=== PATIENT | male | born 1955 | race Caucasian/White ===

== ENCOUNTER 2018-04-08 07:13 | Day surgery (SDC) | payer MEDICARE ==
[2018-04-08] MEDS ORDERED: PROPOFOL 200 MG/20 ML VIAL As Ordered ×2 (07:47)
[2018-04-08] MEDS ORDERED: LIDOCAINE 2% INJ 100 MG/5 ML SDV (FOR ANES.) As Ordered (07:48)
[2018-04-08] MEDS ORDERED: NS 1,000 ML IV (08:00)
== END 2018-04-08 09:55 | disposition home or self-care (01) ==
LOC: M OPP 07:13
DX: Z12.11 Encounter for screening for malignant neoplasm of colon (principal); Z86.010 Personal history of colon polyps; D12.2 Benign neoplasm of ascending colon; K62.1 Rectal polyp; K64.8 Other hemorrhoids; I10 Essential (primary) hypertension; E78.5 Hyperlipidemia, unspecified; F41.9 Anxiety disorder, unspecified; R06.83 Snoring; Z79.899 Other long term (current) drug therapy
CPT/HCPCS: 45380

== ENCOUNTER 2019-03-14 19:18 | Inpatient (IN) | payer MEDICARE ==
[~2019-03-14] VITALS: Ht 170.2 cm; Wt 87.9 kg
[~2019-03-14 19:18] MED LIST: ATOR1TAB21 PO; FLUO20CA19 PO; LISI10TA4 PO
[2019-03-14 19:55] LABS: HEMATOCRIT 44.2 % (42.0-52.0); HEMOGLOBIN 14.8 g/dl (13.5-17.5); MEAN CORPUSCULAR HGB CONC 33.5 g/dl (32.0-36.5); MEAN CORPUSCULAR VOLUME 89.7 fl (80.0-96.0); PLATELET COUNT, AUTOMATED 283 10^3/uL (150-450); RED BLOOD COUNT 4.93 10^6/uL (4.30-6.10); WHITE BLOOD COUNT 11.9 10^3/uL (4.0-10.0)
[2019-03-14 20:23] LABS: AMPHETAMINES LEVEL URINE NEGATIVE (NEGATIVE); BARBITURATES URINE NEGATIVE (NEGATIVE); BENZODIAZEPINES URINE NEGATIVE (NEGATIVE); CANNABINOIDS URINE NEGATIVE (NEGATIVE); COCAINE METABOLITE URINE NEGATIVE (NEGATIVE); METHADONE URINE NEGATIVE (NEGATIVE); OPIATES URINE NEGATIVE (NEGATIVE); PHENCYCLIDINE URINE NEGATIVE (NEGATIVE)
[2019-03-14 20:52] LABS: ACETAMINOPHEN LEVEL < 2.0 UG/ML (10.0-30.0); ALBUMIN 4.6 GM/DL (3.2-5.2); ALT/SGPT 36 U/L (12-78); BILIRUBIN,DIRECT 0.2 MG/DL (0.0-0.2); BILIRUBIN,TOTAL 0.6 MG/DL (0.2-1.0); BLOOD UREA NITROGEN 9 MG/DL (7-18); CALCIUM LEVEL 9.2 MG/DL (8.8-10.2); CARBON DIOXIDE LEVEL 26 MEQ/L (21-32); CHLORIDE LEVEL 95 MEQ/L (98-107); CREATININE FOR GFR 0.85 MG/DL (0.70-1.30); ETHYL ALCOHOL (ETHANOL) < 0.003 % (0.000-0.010); GLOMERULAR FILTRATION RATE > 60.0 (>49); GLUCOSE, FASTING 101 MG/DL (70-100); POTASSIUM SERUM 4.1 MEQ/L (3.5-5.1); SALICYLATE LEVEL < 1.7 MG/DL (5.0-30.0); SODIUM LEVEL 133 MEQ/L (136-145); TOTAL PROTEIN 7.7 GM/DL (6.4-8.2)
[2019-03-14] MEDS ORDERED: MOM 30ML SUSPENSION UDC PO PRN (21:30)
[2019-03-14] MEDS ORDERED: ACETAMINOPHEN TAB 650MG DOSE (2X325MG) PO PRN (21:30)
[2019-03-14] MEDS ORDERED: MAALOX 30 ML SUSP *UDC PO PRN (21:30)
[2019-03-14 23:01] VITALS: BP 169/93
[2019-03-15 07:00] VITALS: BP 139/89
[2019-03-15] MEDS: ATORVASTATIN 20 MG TAB PO SCH (07:58)
[2019-03-15] MEDS ORDERED: LISINOPRIL 20 MG TAB PO SCH (09:00)
[2019-03-15] MEDS ORDERED: FLUoxetine 20 MG CAP PO SCH (09:00)
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
--- NOTE | 2019-03-15 13:27 | HPEPDOC ---
General Date of Admission Mar 14, 2019 at 21:17 Date of Service: Mar 15, 2019 Chief Complaint The patient is a 63-year-old male who presented to the emergency room after experiencing difficulty with anger History of Present Illness Patient is a 63-year-old male with a past medical history of hypertension, dyslipidemia, depression/anxiety, who presented to the emergency room after experiencing difficulty with controlling his anger. Currently, this is being managed by psychiatry. Hospitalist service was consulted for medical screening evaluation. Currently, patient does not experience any headache, nausea, vomiting, chest pain, shortness of breath, cough, abdominal pain, constipation, diarrhea, discomfort with urination or any fevers/chills over the last 2 weeks. Patient does report a poor appetite and has reported a weight loss of approximately 7 pounds over 1 month. Home Medications Scheduled Atorvastatin Calcium (Atorvastatin Calcium) 20 Mg Tab, 20 MG PO DAILY, (Reported) Fluoxetine Hcl (Fluoxetine HCl) 20 Mg Cap, 20 MG PO DAILY, (Reported) Lisinopril (Lisinopril) 10 Mg Tab, 10 MG PO DAILY, (Reported) Allergies Coded Allergies: No Known Allergies (Unverified , 03/25/18) Past Medical History Medical History Hypertension, dyslipidemia, depression/anxiety Surgical History Left shoulder repair for torn rotator cuff Left knee arthroplasty Hernia repair in childhood Family History - Mother with history of diabetes, hypertension and possible heart attack - Father with history of Alzheimers Social History - Patient has quit smoking 12 years ago but was a smoker of 40 years at 3 PPD use; Social alcohol use; Marijuana use, last reported 1 week prior - Denies recent travel or sick contacts - Lives with Review of Systems Other systems 10 point review of systems complete, all negative otherwise stated in HPI Vital Signs - Vitals: BP 139/89, HR 78, RR 16, Sat 98.2F, Temp 98.2F - General: Lying in bed, No acute distress, Speaking in full sentences, AAOx3 - HEENT: NC, AT, PERRLA, EOMI - CVS: RRR, +S1S2 - Lungs: Fair air entry bilaterally, No appreciable wheezing / rales / rhonchi - Abdomen: Soft, Non-distended, Non-tender - Extremities: No lower extremity edema, No calf tenderness - Neuro: No focal motor or sensory deficit - Skin: No visible rashes Laboratory Data Labs 24H Laboratory Tests 2 03/14/19 19:42: Nucleated Red Blood Cells % (auto) 0.0, Anion Gap 12, Glomerular Filtration Rate > 60.0, Calcium Level 9.2, Aspartate Amino Transf (AST/SGOT) 28, Alanine Aminotransferase (ALT/SGPT) 36, Alkaline Phosphatase 93, Total Bilirubin 0.6, Direct Bilirubin 0.2, Total Protein 7.7, Albumin 4.6, Albumin/Globulin Ratio 1.48, Thyroid Stimulating Hormone (TSH) 1.920, Salicylates Level < 1.7L, Urine Amphetamines Screen NEGATIVE, Urine Benzodiazepines Screen NEGATIVE, Urine Opiates Screen NEGATIVE, Urine Methadone Screen NEGATIVE, Acetaminophen Level < 2.0L, Urine Barbiturates Screen NEGATIVE, Urine Phencyclidine Screen NEGATIVE, Urine Cocaine Metabolite Screen NEGATIVE, Urine Cannabinoids Screen NEGATIVE, Ethyl Alcohol Level < 0.003 CBC/BMP Laboratory Tests 03/14/19 19:42 Red Blood Count 4.93, Mean Corpuscular Volume 89.7, Mean Corpuscular Hemoglobin 30.0, Mean Corpuscular Hemoglobin Concent 33.5, Red Cell Distribution Width 13.2 Plan / VTE VTE Prophylaxis Ordered?: Yes Plan Plan Depression / Anxiety / Anger - Presented to the emergency room after expressing anger - Early being managed by psychiatry HTN - Blood pressure appears to be well-controlled - c/w Lisinopril DLP - c/w Atorvastatin DVT prophylaxis - c/w early ambulation Cna Hha was present for the duration of this history and physical examination Please reconsult as needed SEVERO BENITEZ MD Mar 15, 2019 13:27
[2019-03-15] MEDS ORDERED: LISINOPRIL 10 MG TAB PO ONE (16:00)
[2019-03-15 18:00] VITALS: BP 135/79
[2019-03-15] MEDS: traZODone 50 MG TAB PO PRN (20:44)
[2019-03-16 06:56] VITALS: BP 132/71
[2019-03-16] MEDS: LISINOPRIL 10 MG TAB PO SCH (08:07)
[2019-03-16] MEDS: FLUoxetine 20 MG CAP PO SCH (08:07)
[2019-03-16] MEDS: ATORVASTATIN 20 MG TAB PO SCH ×2 (09:00→09:34)
[2019-03-16 14:40] VITALS: BP 139/66
--- NOTE | 2019-03-16 18:18 | ECGEPIP ---
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
[2019-03-16] MEDS: DIVALPROEX 500MG *ER* TAB PO SCH (20:49)
[2019-03-16] MEDS: traZODone 50 MG TAB PO PRN (20:49)
[2019-03-17 06:48] VITALS: BP 140/76
[2019-03-17] MEDS: LISINOPRIL 10 MG TAB PO SCH (08:18)
[2019-03-17] MEDS: ATORVASTATIN 20 MG TAB PO SCH (08:18)
[2019-03-17] MEDS: FLUoxetine 20 MG CAP PO SCH (08:18)
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
[2019-03-17 18:00] VITALS: BP 127/60
[2019-03-17] MEDS: traZODone 50 MG TAB PO PRN (20:51)
[2019-03-17] MEDS: DIVALPROEX 500MG *ER* TAB PO SCH (20:51)
[2019-03-18 06:39] VITALS: BP 136/75
[2019-03-18] MEDS: FLUoxetine 20 MG CAP PO SCH (08:09)
[2019-03-18 08:10] VITALS: BP 144/73
[2019-03-18] MEDS: ATORVASTATIN 20 MG TAB PO SCH (08:10)
[2019-03-18] MEDS: LISINOPRIL 10 MG TAB PO SCH (08:10)
[2019-03-18] MEDS ORDERED: TRAZ-252 PO ×2 (10:54→11:35)
[2019-03-18] MEDS ORDERED: DEPA500T2 PO ×2 (10:54→11:35)
[2019-03-18] MEDS ORDERED: FLUO20CA19 PO (10:54)
--- NOTE | 2019-03-21 13:39 | MHDS ---
DATE OF ADMISSION: 03/14/2019 DATE OF DISCHARGE: 03/18/2019 DIAGNOSIS: Mood disorder, unspecified. Rule out major depressive disorder. IDENTIFYING DATA: 63-year-old male who was recently , who was admitted because of suicidal thoughts. For details of history of present illness, past psychiatric history, personal history, social history, substance abuse history, please refer to the initial evaluation. COURSE IN THE HOSPITAL: Patient initially was depressed, sad and tearful. His Prozac was increased from 20 mg to 40 mg and later Depakote was added to control his mood swings. He was also provided with individual group and milieu therapy. His isolation decreased. His depression resolved. He was not tearful. His sleep and appetite are good. He started attending groups and activities and there was no behavioral issues on the unit. Denied any side effect from the medications and he was discharged. MEDICATIONS: - Depakote 500 mg a night - trazodone 50 mg at night - fluoxetine 40 mg once daily LABS: CBC, CMP within normal limits. Toxicology was negative. Vital signs: Temperature 97.9, pulse 79, respiratory rate 12, blood pressure 136/75. REVIEW OF SYSTEMS: Denied chest pain, palpitation. Denied abdominal pain, dysuria. Denied cough or shortness of breath. Denied numbness, tingling. Gait is normal. PLAN: Is to discharge him home. Followup at [facility]. MENTAL STATUS EXAMINATION: Casually dressed, cooperative, made good eye contact. Speech rate, rhythm, and volume are good. Thought process linear and goal directed. Thought content denied any delusions. Denied suicidal or homicidal ideas. Mood is euthymic. Affect is appropriate for the mood. Insight and judgment are good. Memory - immediate, remote, recent are good. He will be going to stay with his daughter.
== END 2019-03-18 11:45 | disposition home or self-care (01) | DRG 885 ==
LOC: M ED 19:18 → M ED INP 21:17 → M PSY 22:57
PROVIDERS: ADMIT Psychiatry & Neurology Psychiatry; ATTEND Psychiatry & Neurology Addiction Medicine
DX: F39 Unspecified mood [affective] disorder (principal); R45.851 Suicidal ideations; F32.9 Major depressive disorder, single episode, unspecified; Z63.5 Disruption of family by separation and divorce; Z62.810 Personal history of physical and sexual abuse in childhood; Z79.899 Other long term (current) drug therapy; Z87.891 Personal history of nicotine dependence; F43.21 Adjustment disorder with depressed mood; I10 Essential (primary) hypertension; E78.5 Hyperlipidemia, unspecified

== ENCOUNTER → 2019-04-20 | Outpatient (CLI) | payer MEDICARE ==
[~2019-04-20] MED LIST changes: +DEPA500T2 PO; +TRAZ-252 PO
== END ==
LOC: M LAB 10:19
PROVIDERS: ATTEND Psychiatry & Neurology Psychiatry
DX: Z51.81 Encounter for therapeutic drug level monitoring (principal)

== ENCOUNTER → 2021-12-22 | Outpatient (CLI) | payer MEDICARE ==
[~2021-12-22] MED LIST changes: +ASPI81TA26 PO; -FLUO20CA19 PO; +FLUO20CA22 PO; +LISI10TA22 PO; -LISI10TA4 PO
== END ==
LOC: M LABSMTC 12:12
PROVIDERS: ATTEND Anesthesiology
DX: Z01.812 Encounter for preprocedural laboratory examination (principal); Z20.822 Contact with and (suspected) exposure to COVID-19

== ENCOUNTER 2021-12-27 09:26 | Day surgery (SDC) | payer MEDICARE ==
[~2021-12-27] VITALS: Ht 170.2 cm; Wt 73.5 kg
[~2021-12-27 09:26] MED LIST changes: +NS 1,000 ML IV ONE
[2021-12-27] MEDS ORDERED: propofoL 200 MG/20 ML VIAL As Ordered ONE (10:06)
[2021-12-27 13:30] VITALS: BP 126/71
== END 2021-12-27 14:03 | disposition home or self-care (01) ==
LOC: M OPP 09:26
PROVIDERS: ATTEND Internal Medicine Gastroenterology
DX: Z12.11 Encounter for screening for malignant neoplasm of colon (principal); Z86.010 Personal history of colon polyps; D12.5 Benign neoplasm of sigmoid colon; K63.5 Polyp of colon; Z79.02 Long term (current) use of antithrombotics/antiplatelets; Z79.1 Long term (current) use of non-steroidal anti-inflammatories (NSAID); Z79.82 Long term (current) use of aspirin; Z79.899 Other long term (current) drug therapy

== ENCOUNTER 2021-12-28 02:53 | Emergency (ER) | payer MEDICARE ==
[~2021-12-28] VITALS: Ht 170.2 cm; Wt 73.6 kg
[~2021-12-28 02:53] MED LIST changes: -NS 1,000 ML IV ONE
[2021-12-28 02:54] VITALS: BP 155/82
== END 2021-12-28 04:36 | disposition home or self-care (01) ==
LOC: M ED 02:53
DX: K92.2 Gastrointestinal hemorrhage, unspecified (principal); E78.5 Hyperlipidemia, unspecified; F41.9 Anxiety disorder, unspecified; Z86.010 Personal history of colon polyps; Z79.899 Other long term (current) drug therapy

== ENCOUNTER → 2025-02-10 | Outpatient (CLI) | payer MEDICARE ==
[~2025-02-10] MED LIST changes: +FLUO-365 PO; -FLUO20CA22 PO
== END ==
LOC: M PLAIMG 07:01
PROVIDERS: ATTEND Nurse Practitioner
DX: M51.362 Other intervertebral disc degeneration, lumbar region with discogenic back pain and lower extremity pain (principal); G89.29 Other chronic pain; M47.816 Spondylosis without myelopathy or radiculopathy, lumbar region; M48.061 Spinal stenosis, lumbar region without neurogenic claudication; M47.817 Spondylosis without myelopathy or radiculopathy, lumbosacral region